=== PATIENT | male | born 1965 | race American Indian/Alaskan Native ===

== ENCOUNTER 2016-12-18 12:41 | Outpatient (CLI) | payer OTHER ==
--- NOTE | 2016-12-19 12:29 | Magnetic Resonance Report ---
MR UPPER EXTREMITY JOINT LEFT WITHOUT CONTRAST HISTORY: Left shoulder injury, left shoulder pain. TECHNIQUE: Multisequence, multiplanar MRI without contrast. COMPARISON: None at this facility. FINDINGS: Mild osteoarthritic changes at the glenohumeral joint and moderate hypertrophic osteoarthritic changes at the a.c. joint are identified. Inferior spurring at the a.c. joint abuts the musculotendinous junction of the supraspinatus tendon. Correlate for impingement syndrome. No evidence for fracture, dislocation, ligamentous injury or bone lesion. There is focal fluid signal in the distal supraspinatus tendon at its insertion site on the proximal humerus. This is consistent with an intrasubstance tear. No complete rupture or large full thickness tear identified. The infraspinatus, teres minor and subscapularis tendons and their insertions are intact. The biceps tendon and its anchor of the superior labrum or within normal limits. No gross labral defect. Small joint effusion and trace fluid in the subacromial bursa are noted. IMPRESSION: Focal intrasubstance tear of the distal supraspinatus tendon near its insertion site on the proximal humerus. Osteoarthritic changes. Small joint effusion. Correlate for impingement syndrome.
== END 2016-12-18 12:42 | disposition home or self-care (01) ==
LOC: MRI 12:41
PROVIDERS: ATTEND Internal Medicine
DX: S46.012A Strain of muscle(s) and tendon(s) of the rotator cuff of left shoulder, initial encounter (principal); M25.412 Effusion, left shoulder; S49.92XD Unspecified injury of left shoulder and upper arm, subsequent encounter; X58.XXXD Exposure to other specified factors, subsequent encounter; X58.XXXA Exposure to other specified factors, initial encounter; Y93.89 Activity, other specified; Y92.89 Other specified places as the place of occurrence of the external cause; Y99.8 Other external cause status